=== PATIENT | female | born 1980 | race Two or more races ===

== ENCOUNTER 2021-12-12 17:45 | Emergency (ER) | payer OTHER ==
[~2021-12-12] VITALS: Ht 154.9 cm; Wt 59.0 kg
[2021-12-12] MEDS ORDERED: ENDOMETRIN100 MG VG (18:04)
== END 2021-12-12 20:29 | disposition home or self-care (01) ==
LOC: ER 17:45
DX: N83.292 Other ovarian cyst, left side (principal); N83.291 Other ovarian cyst, right side

== ENCOUNTER 2022-01-25 15:59 | Emergency (ER) | payer OTHER ==
[~2022-01-25] VITALS: Ht 154.9 cm; Wt 59.0 kg
[~2022-01-25 15:59] MED LIST: ENDOMETRIN100 MG VG
[2022-01-25] MEDS ORDERED: MULTI VITAMIN1 EACH PO (16:23)
== END 2022-01-25 19:33 | disposition home or self-care (01) ==
LOC: ER 15:59
DX: O26.891 Other specified pregnancy related conditions, first trimester (principal); Z3A.11 11 weeks gestation of pregnancy; M54.9 Dorsalgia, unspecified; Z91.040 Latex allergy status; Z91.013 Allergy to seafood

== ENCOUNTER 2022-02-19 08:09 | Outpatient (CLI) | payer OTHER ==
[~2022-02-19 08:09] MED LIST changes: +MULTI VITAMIN1 EACH PO
== END 2022-02-19 09:25 | disposition home or self-care (01) ==
LOC: PRENATAL 08:09
PROVIDERS: ATTEND Obstetrics & Gynecology Maternal & Fetal Medicine
DX: O36.80X0 Pregnancy with inconclusive fetal viability, not applicable or unspecified (principal); O09.519 Supervision of elderly primigravida, unspecified trimester; Z3A.14 14 weeks gestation of pregnancy; O09.219 Supervision of pregnancy with history of pre-term labor, unspecified trimester

== ENCOUNTER 2022-03-30 12:28 | Outpatient (CLI) | payer OTHER | END 2022-03-30 14:49 | disposition home or self-care (01) | LOC: PRENATAL 12:28 | PROVIDERS: ATTEND Obstetrics & Gynecology Maternal & Fetal Medicine | DX: O35.0XX0 Maternal care for (suspected) central nervous system malformation in fetus, not applicable or unspecified (principal); O35.3XX0 Maternal care for (suspected) damage to fetus from viral disease in mother, not applicable or unspecified; O09.519 Supervision of elderly primigravida, unspecified trimester; O09.819 Supervision of pregnancy resulting from assisted reproductive technology, unspecified trimester; O09.219 Supervision of pregnancy with history of pre-term labor, unspecified trimester; Z3A.20 20 weeks gestation of pregnancy; Z91.040 Latex allergy status; Z91.013 Allergy to seafood ==

== ENCOUNTER 2022-06-10 20:07 | Outpatient (CLI) | payer OTHER | END 2022-06-10 23:12 | disposition home or self-care (01) | LOC: OBS/DEL 20:07 | PROVIDERS: ATTEND Obstetrics & Gynecology | DX: O47.03 False labor before 37 completed weeks of gestation, third trimester (principal); Z3A.30 30 weeks gestation of pregnancy ==

== ENCOUNTER → 2022-06-10 | Emergency (ER) | payer OTHER | END | disposition home or self-care (01) | LOC: ER 18:41 | DX: O47.03 False labor before 37 completed weeks of gestation, third trimester (principal); Z3A.30 30 weeks gestation of pregnancy; Z20.822 Contact with and (suspected) exposure to COVID-19; Z91.040 Latex allergy status; Z91.013 Allergy to seafood ==

== ENCOUNTER 2022-07-02 12:44 | Inpatient (IN) | payer OTHER ==
[~2022-07-02] VITALS: Ht 154.9 cm; Wt 59.9 kg
== END 2022-07-06 13:38 | disposition home or self-care (01) | DRG 807 ==
LOC: OBS/DEL 12:44 → LDR 07-03 00:53 → OB/GYN 07-04 18:44
PROVIDERS: ADMIT Obstetrics & Gynecology; ATTEND Obstetrics & Gynecology
PROC: 4A1HXCZ Monitoring of Products of Conception, Cardiac Rate, External Approach (ICD-10-PCS; 2022-07-03)
PROC: BY4FZZZ Ultrasonography of Third Trimester, Single Fetus (ICD-10-PCS; 2022-07-03)
PROC: BU4CZZZ Ultrasonography of Uterus and Ovaries (ICD-10-PCS; 2022-07-03)
PROC: 10E0XZZ Delivery of Products of Conception, External Approach (ICD-10-PCS; principal; 2022-07-04)
DX: O60.14X0 Preterm labor third trimester with preterm delivery third trimester, not applicable or unspecified (principal); Z37.0 Single live birth; O36.8130 Decreased fetal movements, third trimester, not applicable or unspecified; O26.843 Uterine size-date discrepancy, third trimester; Z3A.33 33 weeks gestation of pregnancy; Z20.822 Contact with and (suspected) exposure to COVID-19